=== PATIENT | female | born 2000 | race Caucasian/White ===

== ENCOUNTER 2021-04-16 17:37 | Emergency (ER) | payer OTHER, SELFPAY ==
[2021-04-16 18:07] VITALS: BP 115/64; PULSE 75; RESP 20; TEMP 36.3; O2SAT 99; BMI 31.7
--- NOTE | 2021-04-16 18:15 | DI.RAD.S_ITS ---
PROCEDURE: XR KNEE RT 3V INDICATIONS: fall TECHNIQUE: 3 views of the knee were acquired. COMPARISON: None. FINDINGS: Bones: No fractures or dislocations. No suspicious bony lesions. Soft tissues: No joint effusion. No suspicious soft tissue calcifications. IMPRESSION: No acute fracture. No osseous lesion. If symptoms and/or clinical suspicion for pathology persist, further assessment with repeat, or advanced imaging (e.g., CT, MRI, or bone scan) may be helpful for further assessment. Dictated by: Zack Gaston M.D. on 04/16/2021 at 18:39 Approved by: Zack Gaston M.D. on 04/16/2021 at 18:39
--- NOTE | 2021-04-16 18:16 | DI.RAD.S_ITS ---
PROCEDURE: XR FINGER LT MIN 2V INDICATIONS: fall TECHNIQUE: AP hand, 2 views of the 4th finger(s) acquired. COMPARISON: None. FINDINGS: Bones: No fractures or dislocations. No suspicious bony lesions. Soft tissues: No suspicious soft tissue calcifications. IMPRESSION: No acute fracture. No osseous lesion. If symptoms and/or clinical suspicion for pathology persist, further assessment with repeat, or advanced imaging (e.g., CT, MRI, or bone scan) may be helpful for further assessment. Dictated by: Zack Gaston M.D. on 04/16/2021 at 18:39 Approved by: Zack Gaston M.D. on 04/16/2021 at 18:39
[2021-04-16 20:51] LABS: RBC Urine 1-5/HPF (0-5/HPF)
[2021-04-16 20:52] LABS: Bacteria Urine None Seen; Culture Indicated Urine Cult Not Indicated; Squamous Epithelial Cell Urine 1-5 /HPF (0-5/HPF); WBC Urine 0-1/HPF (0-5/HPF)
[2021-04-16 21:21] VITALS: BP 94/55; PULSE 65; O2SAT 100
--- NOTE | 2021-04-16 21:41 | ED.LOWEXIN ---
HPI - Extremity Injury (Lower) General Chief Complaint: Extremity Injury, Lower Stated Complaint: busted finger and hurt knee Time Seen by Provider: 04/16/21 21:32 Source: patient and EMS Mode of arrival: Wheelchair History of Present Illness HPI Narrative: A 20-year-old healthy female who presents with right knee pain and left 4th finger pain after trip and fall at work. She states there was change on the ground when she tripped and fell over. No head injury. She has significant pain and swelling in her right knee unable to bear weight. Superficial lacerations on left ring finger but no numbness tingling or bony deformity. Took ibuprofen prior to arrival it has not quite help. Review of Systems Review of Systems Narrative: GENERAL: Denies chills,fever HEENT: Denies throat pain RESPIRATORY: Denies dyspnea, cough, wheezing CARDIOVASCULAR: Denies chest pain, palpitations GASTROINTESTINAL: Denies nausea, vomiting MUSCULOSKELETAL: See HPI SKIN: No rash, no laceration, no pruritus NEUROLOGIC: Denies weakness, dizziness, headache, numbness 8 point review of systems is negative except for those stated above and HPI Patient History Social History Smoking Status: Current some day smoker Smoking Status: Current some day smoker alcohol intake frequency: a few times a week Substance Use Type: does not use Exam Initial Vital Signs Initial Vital Signs: Vital Signs Temperature 97.3 F L 04/16/21 18:07 Pulse Rate 75 04/16/21 18:07 Respiratory Rate 20 04/16/21 18:07 Blood Pressure 115/64 04/16/21 18:07 Pulse Oximetry 99 04/16/21 18:07 GENERAL: Well-appearing, well-nourished and in no acute distress. CARDIOVASCULAR: peripheral pulses in tact, cap refill <2 sec RESPIRATORY: No respiratory distress, speaks in full sentences without difficulty EXTREMITIES: Normal range of motion, no clubbing or edema. Neurovascularly intact Right knee mild contusions superficial abrasions tender to touch knee is stable distal pedal pulse intact minimal swelling. Left 4th finger no gross bony deformity no swelling superficial lacerations around the nail bed no nail bed involvement NEUROLOGICAL: Cranial nerves II through XII grossly intact. Normal gait and speech. SKIN: Warm, dry, no petechiae, no rashes or lesions superficial abrasions left finger noted above Course Orders Ordered: ED Orders 04/16/21 18:15 XR knee RT 3V Stat 04/16/21 18:16 XR finger LT min 2V Stat 04/16/21 20:06 Urine Microscopic Stat Vital Signs Vital signs: Vital Signs - 8 hr 04/16/21 21:21 Pulse Rate 65 Blood Pressure 94/55 L Pulse Oximetry 100 MDM - Extremity Injury (Lower) Lab Data Labs: Lab Results 04/16/21 Range/Units 20:06 Urine RBC 1-5/hpf (0-5/HPF) Urine WBC 0-1/hpf (0-5/HPF) Ur Squamous Epith Cells 1-5 /hpf (0-5/HPF) Urine Bacteria None seen (None) Ur Culture Indicated? Cult not indicated Point of Care Testing Test Results Negative Urine Dip Bedside Urine Glucose Negative Bedside Urine Bilirubin - Negative Bedside Urine Ketone - Negative Urine Specific [place] 1.030 Bedside Urine Occult Blood +++ Bedside Urine pH 6.0 Bedside Urine Protein - Negative Bedside Urine Urobilinogen - Negative Bedside Urine Nitrite - Negative Bedside Urine Leukocytes - Negative Esterase Imaging Data Extremity x-ray #1: Radiologist's Impression: PROCEDURE:? XR KNEE RT 3V ? INDICATIONS:? fall ? TECHNIQUE:? 3 views of the knee were acquired.? ? COMPARISON:? None. ? FINDINGS:? ? Bones:? No fractures or dislocations.? No suspicious bony lesions.? ? Soft tissues:? No joint effusion.? No suspicious soft tissue calcifications.? ? ? IMPRESSION:? No acute fracture. No osseous lesion. If symptoms and/or clinical suspicion for pathology persist, further assessment with repeat, or advanced imaging (e.g., CT, MRI, or bone scan) may be helpful for further assessment. ? ? Dictated by: Zack Gaston M.D. on 04/16/2021 at 18:39 ? ? Approved by: Zack Gaston M.D. on 04/16/2021 at 18:39 Extremity x-ray #2: Radiologist's Impression: PROCEDURE:? XR FINGER LT MIN 2V ? INDICATIONS:? fall ? TECHNIQUE:? AP hand, 2 views of the 4th finger(s) acquired.? ? COMPARISON:? None. ? FINDINGS:? ? Bones:? No fractures or dislocations.? No suspicious bony lesions.? ? Soft tissues:? No suspicious soft tissue calcifications.? ? IMPRESSION:? No acute fracture. No osseous lesion. If symptoms and/or clinical suspicion for pathology persist, further assessment with repeat, or advanced imaging (e.g., CT, MRI, or bone scan) may be helpful for further assessment. ? ? Dictated by: Zack Gaston M.D. on 04/16/2021 at 18:39 ? ? Discharge Plan Departure Patient Disposition: Home Clinical Impression: Right knee sprain, Other sprain of left ring finger, initial encounter Instructions: DI for Knee Sprain, DI for Finger Sprain Activity Restrictions/Additional Instructions: *You have been diagnosed with right knee sprain, left finger sprain *What to do: Use crutches as needed use knee brace while active is may increase activity as tolerated *Continue to take medications as directed Ibuprofen 800 mg every 8 hours if needed for [id number] Tylenol 1000 mg every 6 hours if needed for baot-ao-wsjycivo pain *Follow up with your primary care provider in 2-3 days or call [phone] *Return to ER if you should have increasing pain swelling, redness or any new, worsening or concerning symptoms Referrals: [facility] [Provider Group]
== END 2021-04-16 22:49 | disposition home or self-care (01) ==
PROVIDERS: Emergency Provider Emergency Medicine
DX: S83.91XA Sprain of unspecified site of right knee, initial encounter (principal); S63.615A Unspecified sprain of left ring finger, initial encounter; F17.200 Nicotine dependence, unspecified, uncomplicated; W01.0XXA Fall on same level from slipping, tripping and stumbling without subsequent striking against object, initial encounter; Y99.0 Civilian activity done for income or pay
CPT/HCPCS: 73140; 73562; 81003; 81015; 81025; 99283

== ENCOUNTER 2021-07-24 20:06 | Emergency (ER) | payer OTHER, SELFPAY ==
[2021-07-24 20:17] VITALS: BP 114/68; PULSE 61; RESP 20; TEMP 36.4; O2SAT 97
--- NOTE | 2021-07-24 23:24 | DI.RAD.S_ITS ---
PROCEDURE: XR THORACIC SPINE 3V INDICATIONS: acute pain t4-6? compression fx TECHNIQUE: 3 views of the thoracic spine were acquired. COMPARISON: None. FINDINGS: Bones: In this patient with this given history, scrutiny is given to fractures within the region of T4 through T6. None can be seen. No fractures or dislocations are seen elsewhere. No suspicious bony lesions. 12 pairs of ribs are noted, and appear intact where visualized. S-shaped scoliotic curvature is seen. No focal AP alignment abnormality is seen. Soft tissues: No paravertebral stripe thickening. IMPRESSION: No displaced fractures are seen on these plain films. If there is point tenderness (or other clinical suspicion for a fracture not seen on these images) please consider a dedicated limited [id number] CT for further evaluation. Dictated by: Jason Zheng M.D. on 07/24/2021 at 23:30 Approved by: Jason Zheng M.D. on 07/24/2021 at 23:31
[2021-07-24] MEDS: DEXAMETHASONE 10 MG/ML VIAL PO (23:29)
[2021-07-24] MEDS: OXYCODONE IR 5 MG TABLET PO (23:29)
[2021-07-24] MEDS: KETOROLAC 30 MG/ML VIAL IM (23:29)
--- NOTE | 2021-07-24 23:35 | ED.BACK ---
HPI - Back Pain/Injury General Chief Complaint: Back Pain/Injury Stated Complaint: cannot move left arm above head Time Seen by Provider: 07/24/21 23:23 Source: patient History of Present Illness HPI Narrative: 21-year-old otherwise healthy young woman who woke up this morning feeling that she slept wrong with some minor tenderness between her shoulder blades. She is at work and went to lift heavy object above her head and needed to jump a bit to place the object appropriately. When she landed back on her feet she felt a sharp pain at approximately T4 area and has had increasing pain and muscle spasm over the course of the evening. For the time she arrives in the emergency department the pain and spasm is so significant she is having difficulty moving her torso and lifting her left arm. She feels that there is a Zing in type pain down her arm when it is placed in specific positions but is able to move it and is having no specific numbness weakness in the left upper extremity. She has never had similar findings. She denies any recent fever, cough, chills, vomiting, diarrhea, palpitations, headaches, lower extremity weakness or skin rashes. Related Data Previous Rx's Medication Instructions Recorded dexamethasone 4 mg tablet 10 mg PO DAILY #5 tab 07/25/21 (Decadron) oxycodone-acetaminophen 5 mg-325 1 tab PO Q6H PRN #10 tab 07/25/21 mg tablet Allergies Allergy/AdvReac Type Severity Reaction Status Date / Time cephalexin Allergy Verified 07/24/21 20:32 Review of Systems Review of Systems Narrative: Remainder of complete review of systems is otherwise unremarkable except for that included in the HPI. Patient History Social History Smoking Status: Current some day smoker Smoking Status: Current some day smoker alcohol intake frequency: a few times a week Substance Use Type: does not use Exam Initial Vital Signs Initial Vital Signs: Vital Signs Temperature 97.5 F L 07/24/21 20:17 Pulse Rate 61 07/24/21 20:17 Respiratory Rate 20 07/24/21 20:17 Blood Pressure 114/68 07/24/21 20:17 Pulse Oximetry 97 07/24/21 20:17 General: Alert appropriate in no acute distress Respiratory: Able to speak in full sentences, no obvious respiratory distress Spine: She has no tenderness along the cervical spine. At the T4-5 6 level she has significant paraspinous muscle spasm on the left without significant point tenderness centrally. Skin: No obvious rashes, warm and dry Neurologic: Grossly intact no obvious asymmetries or abnormalities Psych: appropriate insight and affect, cooperative Course Orders Ordered: ED Orders 07/24/21 23:24 XR thoracic spine 3V Stat Discontinued Medications Dexamethasone (Dexamethasone 10 Mg/Ml Vial) 10 mg PO NOW ONE Stop: 07/24/21 23:24 Last Admin: 07/24/21 23:29 Dose: 10 mg Documented by: LARISA Ketorolac Tromethamine (Ketorolac 30 Mg/Ml Vial) 30 mg IM NOW ONE Stop: 07/24/21 23:24 Last Admin: 07/24/21 23: Dose: 30 mg Documented by: LARISA Oxycodone HCl (Oxycodone Ir 5 Mg Tablet) 5 mg PO NOW ONE Stop: 07/24/21 23:24 Last Admin: 07/24/21 23: Dose: 5 mg Documented by: LARISA Vital Signs Vital signs: Vital Signs - 8 hr 07/24/21 20:17 Temperature 97.5 F L Pulse Rate 61 Respiratory Rate 20 Blood Pressure 114/68 Pulse Oximetry 97 MDM - Back Pain/Injury Imaging Data XR thorasic spine: Radiologist's Impression: FINDINGS:? ? Bones:? In this patient with this given history, scrutiny is given to fractures within the region of T4 through T6.? None can be seen. ? No fractures or dislocations are seen elsewhere.? No suspicious bony lesions.? 12 pairs of ribs are noted, and appear intact where visualized.? ? S-shaped scoliotic curvature is seen. No focal AP alignment abnormality is seen. ? ? Soft tissues:? No paravertebral stripe thickening.? ? ? IMPRESSION:? No displaced fractures are seen on these plain films. ? If there is point tenderness (or other clinical suspicion for a fracture not seen on these images) please consider a dedicated limited [id number] CT for further evaluation. ? ? ? Dictated by: Jason Zheng M.D. on 07/24/2021 at 23:30 ? ? [facility] Narrative Medical decision making narrative: Otherwise healthy 21-year-old woman with irritation to the upper thoracic area of her back and then acute full and significant muscle spasm. No compression fracture. She does not have any red flags for back pain does not need additional imaging at this time. There is no issue of IV drug use or recent spinal instrumentation to suggest epidural abscess. With radicular component of pain she is given a dose of Decadron and I will give her an additional 2 days for 3 day course of Decadron. Discussed the use of ibuprofen Tylenol and oxycodone to help pain control. Recommended ice and heat. Talked about usual course of healing and recommended that she follow-up with her primary care provider if she still having significant pain within a month and she may need advanced imaging to look for disc or spinal root problems. She is feeling somewhat better still having some pain but safe for home discharge at this time. Discharge Plan Departure Patient Disposition: Home Clinical Impression: Acute back pain with radiculopathy Instructions: DI for Back Strain or Sprain Activity Restrictions/Additional Instructions: Thank you for coming in today. You have an acute muscle strain of your upper thoracic spine. At this time there is no evidence of infection, compression fractures or need for additional blood work or imaging studies. Using 400 mg of ibuprofen (2 gswy-knh-xgwutqg pills) and 1 Tylenol every 6 hours can be very helpful in controlling pain.. For severe pain using 400 mg of ibuprofen and 1 Percocet will be helpful. If you do choose to use Percocet please be aware that it is narcotic, it can be addicting and it will cause constipation. Please make sure you are drinking plenty of water and eating plenty of dried fruit to help with extra fiber. Ice and heat alternating to the area can be helpful. Making sure that you are somewhat mobile does help with faster healing. Bed rest has not been found to be effective. If you find that you are getting worse her having new symptoms please feel free to return to the emergency department Prescriptions: New oxycodone-acetaminophen 5-325 mg tablet 1 tab PO Q6H PRN (Reason: pain) Qty: 10 0RF dexamethasone [Decadron] 4 mg tablet 10 mg PO DAILY Qty: 5 0RF Stand Alone Forms: Work Release Note
--- NOTE | 2021-07-25 | PC.NURSE ---
to radiology per stretcher
--- NOTE | 2021-07-25 01:07 | PC.NURSE ---
pain in upper back by left shoulder blade with pain down left arm after lifting heavy object
== END 2021-07-25 01:09 | disposition home or self-care (01) ==
PROVIDERS: Emergency Provider Emergency Medicine
DX: M54.6 Pain in thoracic spine (principal); M54.10 Radiculopathy, site unspecified; F17.200 Nicotine dependence, unspecified, uncomplicated
CPT/HCPCS: 72072; 96372; 99283; 99284; J1100; J1885

== ENCOUNTER 2022-09-21 23:01 | Emergency (ER) | payer OTHER, SELFPAY ==
[2022-09-21 23:12] VITALS: BP 115/61; PULSE 65; RESP 24; TEMP 36.8; O2SAT 100; BMI 28.3
--- NOTE | 2022-09-21 23:26 | DI.US.S_ITS ---
PROCEDURE: US PELVIC COMPLETE INDICATIONS: SEVERE RIGHT PELVIC PAIN LMP 08/29/2022. History of PCOS. TECHNIQUE: Real-time scanning was performed of the pelvic organs, with image documentation. Additional endovaginal scanning was necessary due to incomplete visualization of the adnexal and endometrial structures by transabdominal scanning. COMPARISON: None. FINDINGS: Uterus: Uterus is anteverted and normal in size at 7.2 x 4.1 x 3.4 cm. The myometrium is homogeneous. The endometrium measures 3 mm combined thickness. Ovaries: The right ovary measures 2.2 x 2.1 x 1.9 cm, with a calculated ovarian volume of 5 cc. The left ovary measures 3.1 x 2.9 x 1.5 cm, with a calculated ovarian volume of 7 cc. The ovaries have a normal sonographic appearance. Blood flow is seen in the right ovary. Blood flow cannot be confirmed in the left ovary. Less than 12 follicles can be seen in each ovary. No adnexal masses are seen. Other: Small volume of free fluid in the pelvis. The appendix is not seen. IMPRESSION: 1. No significant ovarian cysts. 2. Blood flow is seen in the right ovary. Blood flow cannot be confirmed on the left ovary. However, low suspicion for ovarian torsion. This is most likely due to the left ovary position posterior to the uterus. 3. Small volume of free fluid in the pelvis. 4. No endometrial thickening. We strive to produce accurate, complete, and clear reports of imaging services. To assist us in improving patient care, this report was composed using standard report templates and voice recognition software. Therefore, it may contain abnormal punctuation, insertions and/or omissions. Occasional wrong-word or sound-alike substitutions may occur. Though we review the report and make efforts to correct it, we do recommend that the report be read carefully in proper context to recognize any text inaccuracies. Dictated by: lEijah Howard M.D. on 09/22/2022 at 0:15 Approved by: Elijah Howard M.D. on 09/22/2022 at 0:20
--- NOTE | 2022-09-21 23:26 | ED_ITS ---
HPI - General Adult General Chief complaint: Abdominal Pain Stated complaint: SEVERE CRAMPING / PAIN Time Seen by Provider: 09/21/22 23:25 Source: patient Mode of arrival: Wheelchair History of Present Illness HPI narrative: Patient is a 22-year-old female who is here for evaluation of was initially described as a fairly sudden onset of lower abdominal discomfort. She also states she is having quite a bit of cramping. No urinary symptoms. No change in bowel habits. No vomiting. She does have a history of PCOS. She is on control for this. No fevers. No recent travel. Has not tried anything for the symptoms prior to arrival. Related Data Previous Rx's Medication Instructions Recorded dexamethasone 4 mg tablet 10 mg PO DAILY #5 tabs 07/25/21 (Decadron) oxycodone-acetaminophen 5 mg-325 1 tab PO Q6H PRN pain #10 tabs 07/25/21 mg tablet Allergies Allergy/AdvReac Type Severity Reaction Status Date / Time cephalexin Allergy Verified 07/24/21 20:32 Review of Systems Constitutional Constitutional: Reports system reviewed and no additional complaints, except as documented Cardiovascular Cardiovascular: Reports system reviewed and no additional complaints, except as documented Gastrointestinal Gastrointestinal: Reports system reviewed and no additional complaints, except as documented Genitourinary Genitourinary: Reports system reviewed and no additional complaints, except as documented Integumentary/Breasts Skin/Breast: Reports system reviewed and no additional complaints, except as documented Hematologic/Lymphatic On Anticoagulants: No Patient History Social History Smoking Status: Current some day smoker Smoking Status: Current some day smoker alcohol intake frequency: a few times a week Substance Use Type: does not use Exam Initial Vital Signs Initial Vital Signs: Vital Signs Temperature 98.2 F 09/21/22 23:12 Pulse Rate 65 09/21/22 23:12 Respiratory Rate 24 09/21/22 23:12 Blood Pressure 115/61 09/21/22 23:12 Pulse Oximetry 100 09/21/22 23:12 Oxygen Delivery Method Room Air 09/21/22 23:12 Const General: cooperative, comfortable and No ill appearing HENMT Head: normal to inspection and normocephalic Resp Effort & Inspection: normal respiratory effort Auscultation: clear to auscultation bilaterally Cardio Rate: regular rate GI Inspection: non-distended Palpation: soft, No firm, No guarding and tender (Lower abdomen) Neuro General: patient alert, patient awake and moves all extremities Extrem General: capillary refill normal Course Orders Ordered: ED Orders 09/21/22 23:26 US pelvic complete Stat 09/21/22 23:30 Complete Blood Count AUTO DIFF Stat Comprehensive Metabolic Panel Stat Lipase Stat 09/22/22 00:07 Urine Microscopic Stat 09/22/22 00:12 CT abdomen pelvis w con Stat Discontinued Medications Morphine Sulfate (Morphine 4 Mg/Ml Inj) 4 mg IV NOW ONE Stop: 09/21/22 23:28 Last Admin: 09/21/22 23:34 Dose: 4 mg Documented By: KIRK Ondansetron HCl (Ondansetron 4 Mg Odt) 4 mg PO NOW PRN PRN Reason: Nausea And Vomiting Ondansetron HCl (Ondansetron 4 Mg/2 Ml Inj) 4 mg IV NOW PRN PRN Reason: Nausea And Vomiting Vital Signs Vital signs: Vital Signs - 8 hr 09/21/22 23:12 09/22/22 02:12 Temperature 98.2 F Pulse Rate 65 72 Respiratory Rate 24 16 Blood Pressure 115/61 108/55 L Pulse Oximetry 100 99 Oxygen Delivery Method Room Air Room Air Medical Decision Making Lab Data Lab results reviewed: Yes I reviewed the patient's lab results. 09/21/22 23:30 09/21/22 23:30 Labs: Lab Results 09/21/22 09/21/22 09/22/22 Range/Units 23:30 23:30 00:07 WBC 10.9 (4.5-11.0) X10^3/uL RBC 4.75 (4.0-5.2) X10^6/uL Hgb 13.6 (12.0-16.0) g/dL Hct 39.9 (36-46) % MCV 83.9 (80-100) fL MCH 28.6 (26-34) PG MCHC 34.1 (30-36) % RDW 13.3 (11.6-14.8) % Plt Count 295 (150-400) X10^3/uL Neut % (Auto) 49.3 L (50-75) % Lymph % (Auto) 38.4 (25-40) % Brantley % (Auto) 6.1 (3-14) % Eos % (Auto) 5.3 H (2-4) % Baso % (Auto) 0.9 (0-2) % Neut # (Auto) 5400 (9603-4528) /uL Lymph # (Auto) 4200 (6040-3949) /uL Brantley # (Auto) 700 (0-900) /uL Eos # (Auto) 600 H (0-450) /uL Baso # (Auto) 100 (0-100) /uL Sodium 135 L (137-145) mmol/L Potassium 3.9 (3.4-5.1) mmol/L Chloride 103 (98-107) mmol/L Carbon Dioxide 27 (22-32) mmol/L BUN 14 (7-17) mg/dL Creatinine 0.63 (0.52-1.04) mg/dL Estimated GFR > 60 (>60) mL/min BUN/Creatinine Ratio 22.2 H (6-22) Glucose 108 H (70-100) mg/dL Calcium 9.2 (8.4-10.2) mg/dL Total Bilirubin 0.2 (0.2-1.3) mg/dL AST 24 (14-36) IU/L ALT 19 (<35) IU/L Alkaline Phosphatase 63 (38-126) U/L Total Protein 6.9 (6.3-8.2) g/dL Albumin 4.0 (3.5-5.0) g/dL Globulin 2.9 (1.7-4.1) g/dL Albumin/Globulin Ratio 1.4 (1.0-2.8) Lipase 67 (23-300) U/L Urine RBC None seen (0-5/HPF) Urine WBC None seen (0-5/HPF) Ur Squamous Epith Cells 1-5 /hpf (0-5/HPF) Amorphous Sediment 3+ Urine Bacteria None seen (None) Ur Culture Indicated? Cult not indicated Point of Care Testing Test Results Negative Urine Dip Bedside Urine Glucose Negative Bedside Urine Bilirubin - Negative Bedside Urine Ketone - Negative Urine Specific [place] 1.015 Bedside Urine Occult Blood - Negative Bedside Urine pH 8 Bedside Urine Protein - Negative Bedside Urine Urobilinogen - Negative Bedside Urine Nitrite - Negative Bedside Urine Leukocytes - Negative Esterase Point of care testing: Point of Care Testing Test Results Negative Urine Dip Bedside Urine Glucose Negative Bedside Urine Bilirubin - Negative Bedside Urine Ketone - Negative Urine Specific [place] 1.015 Bedside Urine Occult Blood - Negative Bedside Urine pH 8 Bedside Urine Protein - Negative Bedside Urine Urobilinogen - Negative Bedside Urine Nitrite - Negative Bedside Urine Leukocytes - Negative Esterase Imaging Data US - SHADE [employer] FINISHER: Radiologist's Impression: PROCEDURE:? US PELVIC COMPLETE ? INDICATIONS:? SEVERE RIGHT PELVIC PAIN LMP 08/29/2022.? History of PCOS. ? TECHNIQUE:? Real-time scanning was performed of the pelvic organs, with image documentation.? Additional endovaginal scanning was necessary due to incomplete visualization of the adnexal and endometrial structures by transabdominal scanning.? ? COMPARISON:? None. ? FINDINGS:? ?? Uterus:? Uterus is anteverted and normal in size at 7.2 x 4.1 x 3.4 cm. The myometrium is homogeneous. ? The endometrium measures 3 mm combined thickness.? ? Ovaries:? The right ovary measures 2.2 x 2.1 x 1.9 cm, with a calculated ovarian volume of 5 cc. The left ovary measures 3.1 x 2.9 x 1.5 cm, with a calculated ovarian volume of 7 cc. The ovaries have a normal sonographic appearance.? Blood flow is seen in the right ovary.? Blood flow cannot be confirmed in the left ovary. Less than 12 follicles can be seen in each ovary.? No adnexal masses are seen. ? Other:? Small volume of free fluid in the pelvis.? The appendix is not seen. ? ? IMPRESSION:? 1. No significant ovarian cysts. ? 2. Blood flow is seen in the right ovary.? Blood flow cannot be confirmed on the left ovary.? However, low suspicion for ovarian torsion.? This is most likely due to the left ovary position posterior to the uterus. ? 3. Small volume of free fluid in the pelvis. ? 4. No endometrial thickening. CT scan - abdomen/pelvis: Radiologist's Impression: PROCEDURE:? CT ABDOMEN PELVIS W CON ? INDICATIONS:? RLQ/suprapubic abdominal pain ? TECHNIQUE:? After the administration of IV contrast, axial sections were acquired from the lung bases to the pubic symphysis.? Coronal and sagittal reformats were performed.? For radiation dose reduction, the following was used:? automated exposure control, adjustment of mA and/or kV according to patient size. ? COMPARISON:? [facility], US PELVIC COMPLETE, 09/21/2022, 23:38. ? FINDINGS:? Image quality:? Excellent.? ? Lung bases:? Unremarkable.? ? Heart:? No significant findings. ? ? ABDOMEN: Liver:? No focal lesion.? ? Gallbladder:? Not distended.? ? Biliary ducts:? Unremarkable.? ? Pancreas:? Enhances uniformly. Spleen:? Unremarkable.? ? Adrenal Glands:? Unremarkable.? ? Kidneys and Ureters:? No hydronephrosis.? Punctate nonobstructing left kidney stone.? Small left renal cysts which are too small to further characterize. ? Stomach and Bowel:? Stomach is within normal limits.? No small bowel obstruction.? There are a few loops of small bowel which appear thickened in the mid abdomen, (08/14).? Somewhat matted appearance of the small bowel in the left abdomen, (08/23).? The appendix is not dilated.? No periappendiceal inflammatory change seen.? There is air within the appendix. Peritoneum:? No abnormal intraperitoneal fluid.? No free air.? ? Ventral Wall: ? No hernia.? Abdominal Nodes:? No retroperitoneal or mesenteric adenopathy by size criteria.? Vessels:? Aorta and inferior vena cava are normal in size.? ? PELVIS: Pelvic Organs:? Anteverted uterus.? Moderate amount of low-density free fluid in the pelvis.? Normal location of the ovaries.? ? Bladder:? Bladder is only partially distended.? There is mild bladder wall thickening.? No stone. Pelvic Nodes: No enlarged lymph nodes.? Miscellaneous: No inguinal hernias are seen. ? ? ? Bones:? No suspicious lesion. ? ? IMPRESSION:? 1. Small bowel has a matted appearance in the left abdomen.? There are few loops of small bowel with wall thickening.? These findings suggest a small bowel enteritis. ? 2. Moderate amount of low-density free fluid in the pelvis. ? 3. Normal appendix. ? 4. Punctate nonobstructing left kidney stone.? No hydronephrosis? MDM Narrative Medical decision making narrative: Ultrasound shows no acute pathology. She does not have left lower quadrant abdominal tenderness. She does have free fluid in her pelvis. CT scan unremarkable. She does not have any other physical exam findings consistent with an enteritis. No diarrhea. This was a sudden onset. I suspect what happened is she ruptured an ovarian cyst given the sudden onset of the discomfort then the free fluid in her pelvis. There was no indication for antibiotics. No indication for admission to the hospital or surgical consultation. Patient states she does feel better after medications here in the emergency department. She was given return precautions. She expressed understanding and agreement. Discharge Plan Departure Patient Disposition: Home Clinical Impression: Abdominal pain Instructions: DI for Abdominal Pain-Adult Activity Restrictions/Additional Instructions: Your workup here in the emergency department is very reassuring. Like we discussed the can not definitively say this but your presentation today is most consistent with a ruptured cyst. Continue to take all of your medications as directed. Return to the emergency department for new or worsening symptoms. Prescriptions: No Action oxycodone-acetaminophen 5-325 mg tablet 1 tab PO Q6H PRN (Reason: pain) Qty: 10 0RF dexamethasone [Decadron] 4 mg tablet 10 mg PO DAILY Qty: 5 0RF Stand Alone Forms: Patient Portal/API
[2022-09-21] MEDS: MORPHINE 4 MG/ML INJ IV (23:34)
[2022-09-21 23:46] LABS: Add Manual Diff / Slide Review NO; Basophils Absolute Auto 100 /uL (0-100); Basophils Percent Auto 0.9 % (0-2); Eosinophils Absolute Auto 600 /uL (0-450); Eosinophils Percent Auto 5.3 % (2-4); Hematocrit 39.9 % (36-46); Hemoglobin 13.6 g/dL (12.0-16.0); Lymphocytes Absolute Auto 4200 /uL (1100-4500); Lymphocytes Percent Auto 38.4 % (25-40); Mean Corpuscular HGB Conc 34.1 % (30-36); Mean Corpuscular Hemoglobin 28.6 PG (26-34); Mean Corpuscular Volume 83.9 fL (80-100); Monocytes Absolute Auto 700 /uL (0-900); Monocytes Percent Auto 6.1 % (3-14); Neutrophils Absolute Auto 5400 /uL (1500-7000); Neutrophils Percent Auto 49.3 % (50-75); Platelet Count 295 X10^3/uL (150-400); Red Blood Cell Count 4.75 X10^6/uL (4.0-5.2); Red Cell Distribution Width 13.3 % (11.6-14.8); White Blood Cell Count 10.9 X10^3/uL (4.5-11.0)
[2022-09-21 23:57] LABS: Alanine Aminotransferase 19 IU/L (<35); Albumin Globulin Ratio 1.4 (1.0-2.8); Alkaline Phosphatase 63 U/L (38-126); Aspartate Aminotransferase 24 IU/L (14-36); BUN Creatinine Ratio 22.2 (6-22); Bilirubin Total 0.2 mg/dL (0.2-1.3); Blood Urea Nitrogen 14 mg/dL (7-17); Calcium 9.2 mg/dL (8.4-10.2); Carbon Dioxide 27 mmol/L (22-32); Chloride 103 mmol/L (98-107); Estimated Glomerular Filt Rate > 60 mL/min (>60); Globulin 2.9 g/dL (1.7-4.1); Glucose 108 mg/dL (70-100); HEMOLYSIS < 15 (0-50); Lipase 67 U/L (23-300); Potassium 3.9 mmol/L (3.4-5.1); Sodium 135 mmol/L (137-145); Total Protein 6.9 g/dL (6.3-8.2)
--- NOTE | 2022-09-22 00:12 | DI.CT.S_ITS ---
PROCEDURE: CT ABDOMEN PELVIS W CON INDICATIONS: RLQ/suprapubic abdominal pain TECHNIQUE: After the administration of IV contrast, axial sections were acquired from the lung bases to the pubic symphysis. Coronal and sagittal reformats were performed. For radiation dose reduction, the following was used: automated exposure control, adjustment of mA and/or kV according to patient size. COMPARISON: [facility], , PELVIC COMPLETE, 09/21/2022, 23:38. FINDINGS: Image quality: Excellent. Lung bases: Unremarkable. Heart: No significant findings. ABDOMEN: Liver: No focal lesion. Gallbladder: Not distended. Biliary ducts: Unremarkable. Pancreas: Enhances uniformly. Spleen: Unremarkable. Adrenal Glands: Unremarkable. Kidneys and Ureters: No hydronephrosis. Punctate nonobstructing left kidney stone. Small left renal cysts which are too small to further characterize. Stomach and Bowel: Stomach is within normal limits. No small bowel obstruction. There are a few loops of small bowel which appear thickened in the mid abdomen, (4/19). Somewhat matted appearance of the small bowel in the left abdomen, (4/28). The appendix is not dilated. No periappendiceal inflammatory change seen. There is air within the appendix. Peritoneum: No abnormal intraperitoneal fluid. No free air. Ventral Wall: No hernia. Abdominal Nodes: No retroperitoneal or mesenteric adenopathy by size criteria. Vessels: Aorta and inferior vena cava are normal in size. PELVIS: Pelvic Organs: Anteverted uterus. Moderate amount of low-density free fluid in the pelvis. Normal location of the ovaries. Bladder: Bladder is only partially distended. There is mild bladder wall thickening. No stone. Pelvic Nodes: No enlarged lymph nodes. Miscellaneous: No inguinal hernias are seen. Bones: No suspicious lesion. IMPRESSION: 1. Small bowel has a matted appearance in the left abdomen. There are few loops of small bowel with wall thickening. These findings suggest a small bowel enteritis. 2. Moderate amount of low-density free fluid in the pelvis. 3. Normal appendix. 4. Punctate nonobstructing left kidney stone. No hydronephrosis Dictated by: Elijah Howard M.D. on 09/22/2022 at 1:27 Approved by: Elijah Howard M.D. on 09/22/2022 at 1:34
[2022-09-22 00:19] LABS: Amorphous Sediment Urine 3+; Bacteria Urine None Seen; Culture Indicated Urine Cult Not Indicated; RBC Urine None Seen (0-5/HPF); Squamous Epithelial Cell Urine 1-5 /HPF (0-5/HPF); WBC Urine None Seen (0-5/HPF)
[2022-09-22 02:12] VITALS: BP 108/55; PULSE 72; RESP 16; O2SAT 99
== END 2022-09-22 02:13 | disposition home or self-care (01) ==
PROVIDERS: Emergency Provider Emergency Medicine
DX: R10.30 Lower abdominal pain, unspecified (principal)
CPT/HCPCS: 36415; 74177; 76830; 76856; 80053; 81003; 81015; 81025; 83690; 85025; 93976; 96374; 99284; J2270